=== PATIENT | male | born 2000 | race Caucasian/White ===

== ENCOUNTER 2021-06-13 14:40 | Emergency (ER) | payer BC ==
[~2021-06-13] VITALS: Ht 195.6 cm; Wt 102.3 kg
[2021-06-13 15:15] VITALS: BP 129/80; TEMP 98.3
[2021-06-13] MEDS ORDERED: ZOFRAN ODT4 MG PO (15:40)
[2021-06-13 16:03] VITALS: PULSE 56
== END 2021-06-13 16:03 | disposition home or self-care (01) ==
LOC: COL.ER 14:40
DX: S06.0X0A Concussion without loss of consciousness, initial encounter (principal); S00.81XA Abrasion of other part of head, initial encounter; V86.59XA Driver of other special all-terrain or other off-road motor vehicle injured in nontraffic accident, initial encounter